=== PATIENT | female | born 1960 | race African-American/Black ===

== ENCOUNTER → 2018-09-08 | Outpatient (CLI) | payer MEDICARE ==
--- NOTE | 2018-09-08 12:26 | Diagnostic Imaging Report ---
Right knee MRI without contrast. History: Knee pain. Meniscus tear. Decreased range of motion. Pain not responding to conservative management. Arthritis. Comparison: None Technique: Multiplanar multi-sequence MRI of the knee without contrast. Findings: Medial compartment: There is degeneration and fraying of the medial meniscus without tear. The medial compartmental articular cartilage surfaces are slightly thinned with regions of fraying and fissuring. There are peripheral marginal osteophytes. The medial collateral ligament complex is intact. Lateral compartment: There is a horizontally oriented nondisplaced tear involving the posterior horn and body segments of the lateral meniscus. The lateral compartmental articular cartilage surfaces are slightly thin. There are peripheral marginal osteophytes. The lateral collateral complex is intact. Intercondylar notch: The ACL and PCL are intact. Patellofemoral compartment: There is articular cartilage fraying and fissuring in the patellofemoral compartment. Extensor mechanism: The quadriceps and patellar tendons are normal. Other findings: There is a joint effusion and synovitis. There is no acute fracture, subluxation or avascular necrosis. There is a lobulated septated Rodriguez's cyst. IMPRESSION: Nondisplaced horizontally oriented lateral meniscus tear with mild degenerative arthrosis in the lateral compartment of the knee. Mild degenerative arthrosis in the medial and patellofemoral compartments. Joint effusion, synovitis and small Rodriguez's cyst. Signed by: Dr. Scott Maddox M.D. on 09/08/2018 12:22 PM
--- NOTE | 2018-09-08 12:28 | Diagnostic Imaging Report ---
Left knee MRI without contrast. History: Knee pain. Meniscus tear. Decreased range of motion. Pain not responding to conservative management. Arthritis. Comparison: None. Technique: Multiplanar multi-sequence MRI of the knee without contrast. Findings: Medial compartment: There is an obliquely oriented tear involving the posterior horn of the medial meniscus. The medial compartmental articular cartilage surfaces are thinned with regions of fraying and fissuring. The medial collateral complex is intact. There are small marginal osteophytes. Lateral compartment: There is degeneration and fraying of the lateral meniscus without tear. The lateral compartmental articular cartilage surfaces are slightly thin. The lateral collateral ligament complex is intact. Intercondylar notch: The ACL and PCL are intact. Patellofemoral compartment: There is articular cartilage fraying and fissuring in the patellofemoral compartment. Extensor mechanism: The quadriceps and patellar tendons are normal. Other findings: There is a joint effusion and synovitis. There is no acute fracture, subluxation or avascular necrosis. There is a small lobulated Rodriguez's cyst. There is reactive bone marrow edema in the central tibial plateau. IMPRESSION: Obliquely oriented tear involving the posterior horn of the medial meniscus with associated mild degenerative arthrosis in the medial compartment of the knee. Mild degenerative arthrosis in the lateral and patellofemoral compartments. Joint effusion, synovitis, small Rodriguez's cyst and reactive bone marrow edema in the central tibial plateau. Signed by: Dr. Scott Maddox M.D. on 09/08/2018 12:25 PM
== END ==
LOC: MRI 09:01
PROVIDERS: ATTEND Specialist
DX: S83.221A Peripheral tear of medial meniscus, current injury, right knee, initial encounter (principal); S83.222A Peripheral tear of medial meniscus, current injury, left knee, initial encounter

== ENCOUNTER 2018-10-02 13:34 | Outpatient (RCR) | payer MEDICARE ==
[2018-10-17] MEDS ORDERED: [UNRECOGNIZED DRUG - OTHER] PO (13:15)
[2018-10-17] MEDS ORDERED: AMITRIPTYLINE H25 MG PO (13:15)
[2018-10-17] MEDS ORDERED: WELLBUTRIN SR150 MG PO (13:15)
[2018-10-17] MEDS ORDERED: SIMVASTATIN40 MG PO (13:15)
[2018-10-17] MEDS ORDERED: TRADJENTA5 MG PO (13:15)
[2018-10-17] MEDS ORDERED: SINGULAIR10 MG PO (13:15)
[2018-10-17] MEDS ORDERED: LISINOPRIL10 MG PO (13:15)
[2018-10-17] MEDS ORDERED: [UNRECOGNIZED DRUG - OTHER] SQ (13:15)
[2018-10-17] MEDS ORDERED: [UNRECOGNIZED DRUG - OTHER] NEB (13:15)
[2018-10-18] MEDS ORDERED: ALBUTEROL0.63 MG/3 NEB (05:35)
[2018-10-18] MEDS ORDERED: FLUOXETINE HCL20 MG PO (05:35)
== END 2018-10-12 ==
LOC: PT 13:34
PROVIDERS: ATTEND Specialist
DX: M17.0 Bilateral primary osteoarthritis of knee (principal); M25.661 Stiffness of right knee, not elsewhere classified; M62.81 Muscle weakness (generalized); R26.9 Unspecified abnormalities of gait and mobility
CPT/HCPCS: 97110; 97162; G8978; G8979

== ENCOUNTER → 2018-10-18 | Day surgery (SDC) | payer MEDICARE ==
[2018-10-17 13:32] LABS: BASOPHILS % 0.3 % (0.0-1.0); EOSINOPHILS # (AUTO) 0.2 (0.0-0.4); EOSINOPHILS % 2.9 % (0.0-6.0); HEMATOCRIT 42.4 % (34.2-44.1); HEMOGLOBIN 14.3 g/dL (12.0-16.0); LYMPHOCYTES # (AUTO) 1.9 (1.0-3.2); LYMPHOCYTES % 29.7 % (18.0-39.1); MEAN CORPUSCULAR HEMOGLOBIN 30.3 pg (28-32); MEAN CORPUSCULAR HGB CONC 33.7 g/dL (31-35); MEAN CORPUSCULAR VOLUME 89.8 fL (81-99); MONOCYTES # (AUTO) 0.4 (0.2-0.8); MONOCYTES % 6.4 % (4.4-11.3); NEUTROPHILS # (AUTO) 3.8 (2.1-6.9); NEUTROPHILS % 60.5 % (38.7-80.0); PLATELET COUNT 239 x10e3/uL (140-360); RED BLOOD COUNT 4.72 x10e6/uL (3.6-5.1); RED CELL DISTRIBUTION WIDTH 13.2 % (11.7-14.4)
[2018-10-17 13:48] LABS: ANION GAP 15.2 mmol/L (8-16); BLOOD UREA NITROGEN 12 mg/dL (7-26); BUN/CREATININE RATIO 14 (6-25); CALCIUM 9.2 mg/dL (8.4-10.2); CARBON DIOXIDE 23 mmol/L (22-29); CHLORIDE 100 mmol/L (98-107); CREATININE, SERUM 0.85 mg/dL (0.57-1.11); EST GLOMERULAR FILTRATION RATE > 60 ML/MIN (60-); GLUCOSE 253 mg/dL (74-118); POTASSIUM 4.2 mmol/L (3.5-5.1); SODIUM 134 mmol/L (136-145)
--- NOTE | 2018-10-17 14:14 | Diagnostic Imaging Report ---
EXAM: CHEST 2 VIEWS, PA and lateral DATE: 10/17/2018 Time stamp on exam: 1:38 PM INDICATION: Preoperative COMPARISON: None FINDINGS: LINES/TUBES: None LUNGS: No consolidations or edema. PLEURA: No effusions or pneumothorax. HEART AND MEDIASTINUM: Normal size and contour. BONES AND SOFT TISSUES: No acute findings. IMPRESSION: No acute thoracic abnormality. Signed by: Dr. Baldemar Garcia DO on 10/17/2018 2:10 PM
[~2018-10-18] MED LIST: ALBUTEROL0.63 MG/3 NEB; AMITRIPTYLINE H25 MG PO; BUPIVACAINE 0.5%/EPI 30 ML SDV INJ ONE; CEFAZOLIN SOD 2 GM/D5W 50ML 50 ML IV ONE; DEXAMETHASONE SOD PHOS INJ 4 MG/ML VIAL ONE; FENTANYL CITRATE/PF 100MCG/2 ML INJ ONE; FLUOXETINE HCL20 MG PO; KETOROLAC TROMETHAMINE 30 MG/ML VIAL ONE; LIDOCAINE HCL 2% LOCAL INJ 5 ML SDV VIAL INJ ONE; LISINOPRIL10 MG PO; MIDAZOLAM HCL 2 MG/2 ML VIAL ONE; ONDANSETRON HCL INJ 2MG/ML 2ML 2 MG/ML VIAL ONE; PROPOFOL IV EMULSION 10 MG/ML 20 ML VIAL ONE; SEVOFLURANE INHAL SOLN 250 ML PEN BTL ONE; SIMVASTATIN40 MG PO; SINGULAIR10 MG PO; TRADJENTA5 MG PO; WELLBUTRIN SR150 MG PO; [UNRECOGNIZED DRUG - OTHER] NEB; [UNRECOGNIZED DRUG - OTHER] PO; [UNRECOGNIZED DRUG - OTHER] SQ
[2018-10-18 10:00] VITALS: BP 128/81
--- NOTE | 2018-10-19 14:40 | Operative Report ---
DATE OF PROCEDURE: October 18, 2018 PREOPERATIVE DIAGNOSES: 1. Right knee lateral meniscus tear. 1. Right knee degenerative joint disease of the knee. POSTOPERATIVE DIAGNOSES: 1. Right knee lateral meniscus tear. 2. Right knee medial meniscus tear. 3. Right knee degenerative joint disease of the knee. 4. Right knee intra-articular loose body. PROCEDURES PERFORMED: The patient underwent a 1. Right knee examination under anesthesia. 2. Right knee arthroscopy. 3. Right knee partial medial meniscectomy. 4. Right knee partial lateral meniscectomy. 5. Right knee chondroplasty of the patella, the trochlea, the medial femoral condyle and the medial tibial plateau, the lateral femoral condyle and the lateral tibial plateau. 6. Removal of an intra-articular loose body from the medial compartment. [employer]: Essence Brown. ANESTHESIA: General endotracheal intubation anesthesia. INTRAVENOUS FLUIDS: As per the anesthesia record. DESCRIPTION OF PROCEDURE: Ms. Hull was taken to the operating room and placed in the supine position on the operating table. Following induction of general anesthesia as well as endotracheal intubation, the patient's right lower extremity was examined under anesthesia. She was found to have a mild effusion within the knee joint but an otherwise ligamentously stable knee. The patient's lower extremity was prepped and draped in the standard surgical fashion. A 2-portal technique was used to provide this patient an arthroscopic evaluation of the knee joint. Examination of the suprapatellar pouch, medial and lateral gutters found no evidence of loose bodies. There was, however, chondromalacia of the patellar and trochlear surfaces. The scope was advanced into the medial compartment. Examination of the medial compartment demonstrated a torn medial meniscus. There was also an intra-articular loose body within the medial compartment. A grasper was used to remove this intra-articular loose body. A combination of biting forceps and a motorized shaver were used to resect the torn portion of the meniscus. There was also chondromalacia of the articulating surfaces, and a chondroplasty of the medial femoral condyle and medial tibial plateau were performed at this time. The scope was then advanced into the intercondylar notch, and the anterior cruciate ligament was identified and found to be intact. The scope was then advanced into the lateral compartment, and examination of the lateral compartment demonstrated a torn and macerated lateral meniscus. A combination of biting forceps and a motorized shaver were used to resect the torn portion of the lateral meniscus. Chondromalacia of the articulating surfaces was also encountered, and a chondroplasty of the lateral femoral condyle and the lateral tibial plateau was performed at this time. The scope was then advanced into the suprapatellar pouch, and chondroplasties of the patella and trochlea were performed. The knee was deflated of its sterile normal saline. Each of the portal sites was closed using 4-0 nylon suture. The portal sites as well as the knee itself were then injected with half percent Marcaine with epinephrine. Sterile dressings were applied, and the patient was then awakened and taken to the postanesthesia care unit in stable condition. Job#: [id number]
== END | disposition home or self-care (01) ==
LOC: OR 05:15
PROVIDERS: ATTEND Specialist
DX: S83.261A Peripheral tear of lateral meniscus, current injury, right knee, initial encounter (principal); S83.221A Peripheral tear of medial meniscus, current injury, right knee, initial encounter; S83.222A Peripheral tear of medial meniscus, current injury, left knee, initial encounter; M23.41 Loose body in knee, right knee; M22.41 Chondromalacia patellae, right knee; E11.9 Type 2 diabetes mellitus without complications; G62.9 Polyneuropathy, unspecified; I10 Essential (primary) hypertension; J45.909 Unspecified asthma, uncomplicated; G47.33 Obstructive sleep apnea (adult) (pediatric); E03.9 Hypothyroidism, unspecified; F17.210 Nicotine dependence, cigarettes, uncomplicated; X58.XXXA Exposure to other specified factors, initial encounter; Z01.810 Encounter for preprocedural cardiovascular examination; Z01.812 Encounter for preprocedural laboratory examination; Z01.818 Encounter for other preprocedural examination; Z79.4 Long term (current) use of insulin; Z68.37 Body mass index [BMI] 37.0-37.9, adult
CPT/HCPCS: 29880; 36415 ×2; 71046; 80048; 82948; 85025; 93005; J0690; J1100; J1885; J2001; J2250; J2405; J2704

== ENCOUNTER 2019-01-02 10:57 | Outpatient (RCR) | payer MEDICARE ==
[~2019-01-02 10:57] MED LIST changes: -BUPIVACAINE 0.5%/EPI 30 ML SDV INJ ONE; -CEFAZOLIN SOD 2 GM/D5W 50ML 50 ML IV ONE; -DEXAMETHASONE SOD PHOS INJ 4 MG/ML VIAL ONE; -FENTANYL CITRATE/PF 100MCG/2 ML INJ ONE; -KETOROLAC TROMETHAMINE 30 MG/ML VIAL ONE; -LIDOCAINE HCL 2% LOCAL INJ 5 ML SDV VIAL INJ ONE; -MIDAZOLAM HCL 2 MG/2 ML VIAL ONE; -ONDANSETRON HCL INJ 2MG/ML 2ML 2 MG/ML VIAL ONE; -PROPOFOL IV EMULSION 10 MG/ML 20 ML VIAL ONE; -SEVOFLURANE INHAL SOLN 250 ML PEN BTL ONE
== END 2019-01-09 ==
LOC: PT 10:57
PROVIDERS: ATTEND Specialist
DX: M17.11 Unilateral primary osteoarthritis, right knee (principal); S83.241A Other tear of medial meniscus, current injury, right knee, initial encounter

== ENCOUNTER → 2019-04-20 | Outpatient (CLI) | payer MEDICARE ==
--- NOTE | 2019-04-20 16:10 | Diagnostic Imaging Report ---
EXAMINATION: KNEE THREE VIEWS BILATERAL INDICATION: Knee pain COMPARISON: None FINDINGS: Left knee: AP and lateral views of the left knee demonstrate no acute fracture or dislocation. Alignment is anatomic. No substantial joint effusion. Minimal medial compartment degenerative changes. Right knee: AP and lateral views of the right knee demonstrate no acute fracture or dislocation. Alignment is anatomic. Trace suprapatellar joint effusion. Mild patellofemoral and medial compartment degenerative changes. IMPRESSION: No acute osseous injury. Mild degenerative changes of both knees. Trace right suprapatellar joint effusion. Signed by: Daniel Willams MD on 04/20/2019 4:07 PM
== END ==
LOC: RAD 14:15
PROVIDERS: ATTEND Internal Medicine
DX: M25.562 Pain in left knee (principal); M25.561 Pain in right knee; R60.9 Edema, unspecified; M25.461 Effusion, right knee
CPT/HCPCS: 93970